=== PATIENT | female | born 1985 | race Caucasian/White ===

== ENCOUNTER 2020-01-31 09:29 | Inpatient (IN) | payer OTHER, SELFPAY ==
[2020-01-31] VITALS (7 sets, daily range): BP systolic 98–126; BP diastolic 63–75; PULSE 91–99; RESP 9–15; TEMP 36; O2SAT 97–100
--- NOTE | 2020-01-31 | PATH_ITS ---
[facility] Accession Number: [id number] . 01 Material submitted: . placenta - PLACENTA FOR CULTURE . 02 Diagnosis: Delong Placenta for Culture: . Placenta parenchyma: Delong placenta. Weight: 468 grams. Chorionic villous maturation is consistent with mature placenta. Mild to oderate inter- and intra-villous fibrin is present. Possible, very mild villitis present. Please see comment. . Membranes: Marginally inserted. Meconium staining is present. No chorioamnionitis identified. Patchy fibrin deposition on maternal surface (less than 5% of placental disc surface). . Umbilical cord: Length: 10.3 cm. Eccentrically inserted 2.5 cm from the peripheral disc margin. Three vessels present. No funisitis identified. MRV 02/03/2020 1450 Local . 02 Comment: The specimen is submitted in formalin; no tissue available for culture studies. . 02 Electronically signed: . Sandi Ortega MD, Pathologist NPI- [id number] . 01 Gross description: . Received in formalin, labeled with the patient's name, MRN and placenta, is a 468 gram, 16.2 x 13.4 x 3.5 cm delong placenta. The membranes are claudio-white and translucent, inserting marginally. The umbilical cord measures 10.3 cm in length by 0.7 cm in diameter and has unremarkable coiling. No true or false knots are identified. The cord inserts eccentrically 2.5 cm from the nearest peripheral edge. There are three vessels. The surface is blue-rodríguez with prominent vasculature. The maternal surface has intact cotyledons. The placenta is serially sectioned to reveal a red-brown spongy cut surface. There are claudio-white irregular areas on the maternal surface ranging in size from 0.2 cm to 0.4 cm, involving less than 5% of the placental disc. Working Manager sections are submitted as follows: . A1: operations support representative sections of umbilical cord and membrane roll. A2: operations support representative central section of placenta. A3: peripheral section of placenta. A4: operations support representative sections of irregular areas on maternal surface. (SD/[id number]) /MRV 02/02/2020 1450 Local . 02 Pathologist provided ICD-10: O43.90 . 02 CPT . 854470 Performed at: 01 [facility] [address] [id number] MD Castillo Gee MD Phone: [phone] Performed at: 02 [facility] [address] [place], [place] [id number] MD Elsie Valles MD Phone: [phone]
--- NOTE | 2020-01-31 09:46 | P.HPOB_ITS ---
OB HPI Date/Time Date of admission: 01/31/20 Date Patient Seen: 01/31/20 Time Patient Seen: 09:30 History of Present Condition Chief complaint: OBS : 1 Para: 0 Estimated Date of Delivery: 03/05/20 Estimated Gestational Age (weeks): 35.1 Narrative: Jenny Daniels is a 34 year old female @ [id number] based on 11wk US who presents w/ PPROM. ROM for clear fluid @ 0500 this morning. Menstrual like cramping started at the same time and has progressed in frequency. +FM. History of Present care: good care Dating criteria: based on 1st trimester US only Ultrasounds: normal mid trimester US Obstetrical complications: none Medical complications: none Preadmission Labs Blood type: A (+) positive -: Antibody screen: negative, Cystic fibrosis screen: unknown, GBS status: unknown, HBsAG: negative, HIV: negative and RPR/VDLR: negative -: Chlamydia screen: not detected and Gonorrhea screen: not detected -: Rubella: immune and Varicella: unknown HCT: 33.9 HCAB: negative PAP: Normal Cell-free DNA: negative/male 3 hr GTT: 2 hr (66/65/79) Evaluation Evaluation Baseline heart rate: 120 Variability: Moderate (11-25) monitor accelerations: Absent monitor decelerations: Absent Contraction Frequency (minutes): 4 Uterine Contraction Intensity: Mild Category of Tracing: Reactive Non-invasive Membranes Rupture Test: positive Comments: CE deferred at his time [facility] Medical History (Updated 01/31/20 @ 10:40 by Arcelia Bronson CNM) Asthma (Acute) Social History (Updated 01/31/20 @ 10:40 by Arcelia Bronson CNM) marital status: number of children: 0 household members: spouse lives independently: Yes caregiver/support person: No housing: house education level: college occupational status: employed alcohol intake: never Meds Home Medications and Allergies Home Medications Medication Instructions Recorded Confirmed Type albuterol sulfate 01/31/20 History multivit 23-gzhf-heoenv 1-dha cap PO 01/31/20 History [PNV-DHA] Allergies Allergy/AdvReac Type Severity Reaction Status Date / Time No Known Drug Allergies Allergy Verified 01/31/20 10:44 Review of Systems Review of Systems ROS: Yes All systems reviewed with the patient and are negative except as otherwise documented Exam Vital Signs (past 8 hours): BP 126/75, HR 87bpm, RR 16/min, T97.9F Termporal Resp Effort & Inspection: normal respiratory effort Auscultation: clear to auscultation bilaterally Cardio Rate: regular rate Rhythm: regular rhythm Heart Sounds: S1 normal and S2 normal OB/External & Speculum: deferred Uterus Location (Fundal Height): 34 Presentation: full/complete breech Estimated Weight (lbs): 4 Amniotic Fluid: clear Objective Labs Result Diagrams: 01/31/20 10:10 Assessment and Plan Assessment and Plan Assessment and Plan narrative: A: AMA, Primipara, PPROM @ 35.1wks, Breech lie, Cat I FHR P: Admit, pre-op orders. Consulted (OBGyn) and (FP/Peds) for breech PPROM. Counseled patient on PPROM, outlook with possible need for transfer of care after for NICU if needed. Counseled her on transfer of care for recommended primary for breech presentation. Patient aware and in agreement. Betamethasone and COVID testing stat. Time Spent with Patient Total time spent with greater than 50% in coordination of care (as documented) at patient's floor/unit and/or counseling patient:: 25 - 35 minutes
[2020-01-31 10:01] LABS: Appearance Urine UA CLEAR; Bilirubin Urine UA NEGATIVE (NEGATIVE); Color Urine UA YELLOW; Glucose Urine UA NEGATIVE (Negative); Ketones Urine UA NEGATIVE (NEGATIVE); Leukocyte Esterase Urine UA NEGATIVE (NEGATIVE); Nitrite Urine UA NEGATIVE (Negative); Occult Blood Urine UA 3+ (Negative); Protein Urine UA NEGATIVE (Negative); Urobilinogen Urine UA 0.2 E.U./dL (0.2)
[2020-01-31 10:12] LABS: Bacteria Urine Few (2-10); Culture Indicated Urine Cult Not Indicated; RBC Urine 0-1/HPF (0-5/HPF); Squamous Epithelial Cell Urine 0-1 /HPF (0-5/HPF); WBC Urine 0-1/HPF (0-5/HPF)
[2020-01-31 10:38] LABS: Add Manual Diff / Slide Review NO; Basophils Absolute Auto 100 /uL (0-100); Basophils Percent Auto 0.4 % (0-2); Eosinophils Absolute Auto 100 /uL (0-450); Eosinophils Percent Auto 0.6 % (2-4); Hematocrit 32.9 % (36-46); Hemoglobin 10.8 g/dL (12.0-16.0); Lymphocytes Absolute Auto 1900 /uL (1100-4500); Lymphocytes Percent Auto 14.3 % (25-40); Mean Corpuscular Hemoglobin 29.5 PG (26-34); Mean Corpuscular Volume 89.6 fL (80-100); Monocytes Absolute Auto 800 /uL (0-900); Monocytes Percent Auto 5.9 % (3-14); Neutrophils Absolute Auto 10300 /uL (1500-7000); Neutrophils Percent Auto 78.8 % (50-75); Platelet Count 268 X10^3/uL (150-400); Red Blood Cell Count 3.67 X10^6/uL (4.0-5.2); Red Cell Distribution Width 13.3 % (11.6-14.8); White Blood Cell Count 13.1 X10^3/uL (4.5-11.0)
[2020-01-31] MEDS: BETAMETHASONE 30 MG/5 ML MDV 12 MG IM (11:15)
[2020-01-31] MEDS: fentaNYL 100 MCG/2 ML INJ IV ×2 (11:19→11:49)
[2020-01-31] MEDS: LACTATED RINGERS 1,000 ML 100 ML IV ×4 (11:23→21:30)
[2020-01-31 11:49] LABS: Strep Grp B PCR NEG for Grp B Strep
[2020-01-31] MEDS: AZITHROMYCIN 500 MG in DEXTROSE 5% IN WATER 250 ML IV (11:57)
[2020-01-31 12:06] LABS: COVID19 -Nasal RAPID Negative (Negative)
--- NOTE | 2020-01-31 12:06 | SUR.OPER ---
Supine on Padded OR bed, head on pillow, safety belt at thigh, arms secured on padded arm boards at <90 degrees abduction. Bump under right buttock. Legs uncrossed with pillow under knees, gel pad to heels, tape over blanket to lower legs.
--- NOTE | 2020-01-31 12:13 | PM.PREOP ---
Pre-operative Note COVID-19 COVID-19 status: Negative Result date/Date tested (Pos, Neg/Pending): 01/31/20 Interval Note History & Physical reviewed/Exam performed by Physician: Yes Changes to H&P: No H&P completed within 30 days and has changed as indicated here:: This patient is admitted by Kristy he sings for gross rupture of membranes for clear fluid at 35 and 1. Patient has reassuring testing, but is darius Q 2-3 and uncomfortable, in 4-5 cm. Fetus is confirmed to be in breech presentation on ultrasound. Patient was consented for primary section for premature rupture of membranes with breech presentation. We discussed risk of damage to bowel bladder, risk of infection to be medicated by antibiotics administered preoperatively, and risk of bleeding which may require blood transfusion. We discussed risks to future pregnancies, but that given the breech presentation, section is thought to be the safest method of delivery. The patient vocalized understanding, and informed consent was obtained. Plan to proceed to the OR expeditiously. -500 mg of azithromycin and 2 g Ancef to be administered IV preoperatively -patient for Betadine vaginal prep
[2020-01-31] MEDS: CEFAZOLIN 2 GM/100 ML FROZ.PIGGY IV (12:15)
--- NOTE | 2020-01-31 13:08 | SUR.OPER ---
live male at 1236, APGARS 7/9
--- NOTE | 2020-01-31 13:27 | PM.OBHP.1 ---
OB HPI History of Present Condition Chief complaint: OBS Narrative: Jenny Daniels is a 34 year old female Evaluation Evaluation Laboratory results: Laboratory Tests 01/31/20 01/31/20 01/31/20 09:10 09:10 10:10 WBC 13.1 H RBC 3.67 L Hgb 10.8 L Hct 32.9 L MCV 89.6 MCH 29.5 MCHC 33.0 RDW 13.3 Plt Count 268 Neut % (Auto) 78.8 H Lymph % (Auto) 14.3 L [place] % (Auto) 5.9 Eos % (Auto) 0.6 L Baso % (Auto) 0.4 Neut # (Auto) 01831 H Lymph # (Auto) 1900 [place] # (Auto) 800 Eos # (Auto) 100 Baso # (Auto) 100 Urine Color Yellow Urine Appearance Clear Urine pH 7.0 Ur Specific [place] 1.010 Urine Protein Negative Urine Glucose (UA) Negative Urine Ketones Negative Urine Occult Blood 3+ H Urine Nitrate Negative Urine Bilirubin Negative Urine Urobilinogen 0.2 Ur Leukocyte Esterase Negative Urine RBC 0-1/hpf Urine WBC 0-1/hpf Ur Squamous Epith Cells 0-1 /hpf Urine Bacteria Few (2-10) H Ur Culture Indicated? Cult not indicated COVID-19 PCR Group B Strep (PCR) Neg for grp b strep Blood Type Antibody Screen 01/31/20 01/31/20 10:10 11:35 WBC RBC Hgb Hct MCV MCH MCHC RDW Plt Count Neut % (Auto) Lymph % (Auto) [place] % (Auto) Eos % (Auto) Baso % (Auto) Neut # (Auto) Lymph # (Auto) [place] # (Auto) Eos # (Auto) Baso # (Auto) Urine Color Urine Appearance Urine pH Ur Specific [place] Urine Protein Urine Glucose (UA) Urine Ketones Urine Occult Blood Urine Nitrate Urine Bilirubin Urine Urobilinogen Ur Leukocyte Esterase Urine RBC Urine WBC Ur Squamous Epith Cells Urine Bacteria Ur Culture Indicated? COVID-19 PCR Negative Group B Strep (PCR) Blood Type A Positive Antibody Screen Negative PFSH Medical History (Updated 01/31/20 @ 10:40 by Arcelia Bronson CNM) Asthma (Acute) Social History (Updated 01/31/20 @ 10:40 by Arcelia Bronson CNM) marital status: number of children: 0 household members: spouse lives independently: Yes caregiver/support person: No housing: house education level: college occupational status: employed Smoking Status: Never smoker alcohol intake: never Meds Home Medications and Allergies Home Medications Medication Instructions Recorded Confirmed Type albuterol sulfate 1 puff INHALATION PRN PRN 01/31/20 01/31/20 History multivit 43-slif-hyjkdk 1-dha 1 cap PO DAILY 01/31/20 01/31/20 History [PNV-DHA] Allergies Allergy/AdvReac Type Severity Reaction Status Date / Time No Known Drug Allergies Allergy Verified 01/31/20 10:44 Exam Vital Signs (past 8 hours): - 01/31/20 11:33 Blood Pressure 126/75 Objective Labs Result Diagrams: 01/31/20 10:10 Labs: Laboratory Results - last 24 hr 01/31/20 01/31/20 01/31/20 09:10 09:10 10:10 WBC 13.1 H RBC 3.67 L Hgb 10.8 L Hct 32.9 L MCV 89.6 MCH 29.5 MCHC 33.0 RDW 13.3 Plt Count 268 Neut % (Auto) 78.8 H Lymph % (Auto) 14.3 L [place] % (Auto) 5.9 Eos % (Auto) 0.6 L Baso % (Auto) 0.4 Neut # (Auto) 15694 H Lymph # (Auto) 1900 [place] # (Auto) 800 Eos # (Auto) 100 Baso # (Auto) 100 Urine Color Yellow Urine Appearance Clear Urine pH 7.0 Ur Specific [place] 1.010 Urine Protein Negative Urine Glucose (UA) Negative Urine Ketones Negative Urine Occult Blood 3+ H Urine Nitrate Negative Urine Bilirubin Negative Urine Urobilinogen 0.2 Ur Leukocyte Esterase Negative Urine RBC 0-1/hpf Urine WBC 0-1/hpf Ur Squamous Epith Cells 0-1 /hpf Urine Bacteria Few (2-10) H Ur Culture Indicated? Cult not indicated COVID-19 PCR Group B Strep (PCR) Neg for grp b strep Blood Type Antibody Screen 01/31/20 01/31/20 10:10 11:35 WBC RBC Hgb Hct MCV MCH MCHC RDW Plt Count Neut % (Auto) Lymph % (Auto) [place] % (Auto) Eos % (Auto) Baso % (Auto) Neut # (Auto) Lymph # (Auto) [place] # (Auto) Eos # (Auto) Baso # (Auto) Urine Color Urine Appearance Urine pH Ur Specific [place] Urine Protein Urine Glucose (UA) Urine Ketones Urine Occult Blood Urine Nitrate Urine Bilirubin Urine Urobilinogen Ur Leukocyte Esterase Urine RBC Urine WBC Ur Squamous Epith Cells Urine Bacteria Ur Culture Indicated? COVID-19 PCR Negative Group B Strep (PCR) Blood Type A Positive Antibody Screen Negative
--- NOTE | 2020-01-31 13:32 | SUR.PHASEI ---
Reported nausea, obtained Rx, nausea had resolved and patient opted not to receive the medication. Asked if she could sleep. Denies pain.
[2020-01-31] MEDS: METOCLOPRAMIDE 10 MG/2 ML INJ IV (15:09)
[2020-01-31] MEDS: ACETAMINOPHEN 325 MG TABLET 650 MG PO (17:32)
--- NOTE | 2020-01-31 17:42 | P.OP_ITS ---
Operative Date/Time/Diagnoses Date of procedure: 01/31/20 Time of procedure: 12:30 Pre-op diagnosis: PPROM, breech presentation Post-op diagnosis: same Procedure & Clinicians Procedure: Primary section Same procedure as scheduled: Yes Indications: Breech presentation, premature rupture of membranes Surgeon: Brandee Hughes Exhibit Technician: Ember Doherty Anesthesia Type: Spinal Operative Notes Findings: Male in the complete breech presentation, nuchal cord x1, nuchal arms x2. Normal uterus, tubes, ovaries. Friable placental membranes consistent with possible intrauterine infection. Closure Type: primary Specimen(s): other (Placenta) Applied: catheter Estimated Blood Loss (mL): 750 Procedure in detail: EBL: 750 cc Fluids: 2100 cc lactated Ringer's UOP: 100 cc clear urine Findings: Male in cephalic presentation, Apgars 7 and 9, weight 5 lb 15 oz, normal uterus, tubes, ovaries. Procedures: The patient was taken to the operating room where spinal anesthesia was placed and found to be adequate. She was prepped and draped in the normal sterile fashion in the dorsal supine position with a leftward tilt, including Betadine vaginal prep. A Pfannenstiel skin incision was made with a scalpel and carried through to the underlying layer of fascia. The fascia was incised in the midline and the incision extended laterally with Mendes scissors. The inferior aspect of this incision was grasped with Zana clamps, elevated. and the underlying rectus muscles dissected off bluntly and with curved Mendes scissors. Attention was then turned to the superior aspect of this incision which, in a similar fashion, was grasped, tented up with the Zana clamps, and the rectus muscles dissected off bluntly and with curved Mendes scissors. The rectus muscles were then in the midline, and the peritoneum identified and entered bluntly. The peritoneal incision was extended superiorly and inferiorly with good visualization of the bladder. The bladder blade was inserted and the vesico uterine peritoneum identified, grasped with pickups, and entered sharply with the Metzenbaum scissors. This incision was extended laterally, and the bladder flap created digitally. The bladder blade was then reinserted and the lower uterine segment incised in transverse fashion with the scalpel. The uterine incision was bluntly extended laterally. The bladder blade was removed, and the feet were grasped and brought through the incision. The body was brought through the incision to the level of the scapula, and the arms were rotated with the usual maneuvers. The vertex was then delivered using fundal pressure and the usual maneuvers. One loose nuchal cord was reduced, the cord was milked toward the baby, and the cord was clamped and cut. The infant was handed off to waiting pediatricians. The placenta was then removed spontaneously, and the uterus was exteriorized and cleared of all clots and debris. The uterine incision was repaired with 1-0 chromic in a running, locked fashion a 2nd layer of the same suture was used to obtain excellent hemostasis. The uterus was returned to the abdomen, and the gutters were cleared of all clots and debris. The bladder flap was report closed in a running fashion with 2 0 Vicryl, and the fascia reapproximated with 0 Vicryl in a running fashion. The subcutaneous layer was placed with 3 0 Vicryl in an interrupted fashion and the skin was closed with 4-0 biosyn in a running fashion. The patient tolerated the procedure well sponge lap and needle counts were correct x2. 2 g of Ancef and 500 mg of azithromycin were given at commencement of the case. The patient was taken to the recovery room in stable condition. Complications: none Post-operative Condition: stable Disposition: PACU Plan for aftercare: Routine postoperative care. No maternal or signs of infection.
[2020-01-31] MEDS: OXYCODONE IR 5 MG TABLET PO (19:22)
[2020-01-31] MEDS: KETOROLAC 30 MG/ML VIAL IV (21:28)
[2020-02-01] MEDS: KETOROLAC 30 MG/ML VIAL IV ×2 (02:57→08:53)
[2020-02-01] MEDS: OXYCODONE IR 5 MG TABLET PO ×4 (06:37→21:21)
--- NOTE | 2020-02-01 08:23 | PM.OBPN.1 ---
Subjective - OB Subjective Patient comments: no complaints, pain well controlled, incisional pain, tolerating diet and flatus present baby status: doing well and nursing well [place] feeding status: exclusively breast feeding Date Patient Seen: 02/01/20 Time Patient Seen: 08:24 Exam Vital Signs (past 8 hours): 100/55, HR 82 Oxygen Delivery Method Room Air Const General: cooperative, healthy appearing, comfortable and well groomed Other: resting in bed, nursing Resp Effort & Inspection: normal respiratory effort Auscultation: clear to auscultation bilaterally Cardio Rate: regular rate Rhythm: regular rhythm GI Palpation: soft and No tender Other: fundus firm, below u. Incision c/d/i Skin General: no rashes or lesions noted Objective Labs Result Diagrams: 01/31/20 10:10 Labs: Laboratory Results - last 24 hr 01/31/20 01/31/20 01/31/20 09:10 09:10 10:10 WBC 13.1 H RBC 3.67 L Hgb 10.8 L Hct 32.9 L MCV 89.6 MCH 29.5 MCHC 33.0 RDW 13.3 Plt Count 268 Neut % (Auto) 78.8 H Lymph % (Auto) 14.3 L [place] % (Auto) 5.9 Eos % (Auto) 0.6 L Baso % (Auto) 0.4 Neut # (Auto) 77318 H Lymph # (Auto) 1900 [place] # (Auto) 800 Eos # (Auto) 100 Baso # (Auto) 100 Urine Color Yellow Urine Appearance Clear Urine pH 7.0 Ur Specific [place] 1.010 Urine Protein Negative Urine Glucose (UA) Negative Urine Ketones Negative Urine Occult Blood 3+ H Urine Nitrate Negative Urine Bilirubin Negative Urine Urobilinogen 0.2 Ur Leukocyte Esterase Negative Urine RBC 0-1/hpf Urine WBC 0-1/hpf Ur Squamous Epith Cells 0-1 /hpf Urine Bacteria Few (2-10) H Ur Culture Indicated? Cult not indicated COVID-19 PCR Group B Strep (PCR) Neg for grp b strep Blood Type Antibody Screen 01/31/20 01/31/20 10:10 11:35 WBC RBC Hgb Hct MCV MCH MCHC RDW Plt Count Neut % (Auto) Lymph % (Auto) [place] % (Auto) Eos % (Auto) Baso % (Auto) Neut # (Auto) Lymph # (Auto) [place] # (Auto) Eos # (Auto) Baso # (Auto) Urine Color Urine Appearance Urine pH Ur Specific [place] Urine Protein Urine Glucose (UA) Urine Ketones Urine Occult Blood Urine Nitrate Urine Bilirubin Urine Urobilinogen Ur Leukocyte Esterase Urine RBC Urine WBC Ur Squamous Epith Cells Urine Bacteria Ur Culture Indicated? COVID-19 PCR Negative Group B Strep (PCR) Blood Type A Positive Antibody Screen Negative Assessment & Plan Plan day: 1 plan OB: routine postop care Comments: This patient is doing well on POD#1, meeting postoperative goals appropriately. A voiding trial is in progress this AM, and a CBC is ordered. Time Spent With Patient Time: Total time spent is greater than 50% in coordination of care (as documented) at patient's floor/unit and/or counseling patient: Time with patient: 15-24 minutes
[2020-02-01 08:54] LABS: Add Manual Diff / Slide Review NO; Basophils Absolute Auto 0 /uL (0-100); Basophils Percent Auto 0.1 % (0-2); Eosinophils Absolute Auto 0 /uL (0-450); Hematocrit 24.6 % (36-46); Hemoglobin 8.1 g/dL (12.0-16.0); Lymphocytes Absolute Auto 1200 /uL (1100-4500); Lymphocytes Percent Auto 5.8 % (25-40); Mean Corpuscular Hemoglobin 29.5 PG (26-34); Mean Corpuscular Volume 89.3 fL (80-100); Monocytes Absolute Auto 1100 /uL (0-900); Monocytes Percent Auto 5.2 % (3-14); Neutrophils Absolute Auto 19000 /uL (1500-7000); Neutrophils Percent Auto 88.9 % (50-75); Platelet Count 256 X10^3/uL (150-400); Red Blood Cell Count 2.76 X10^6/uL (4.0-5.2); White Blood Cell Count 21.3 X10^3/uL (4.5-11.0)
[2020-02-01] MEDS: DOCUSATE 250 MG CAPSULE PO (08:55)
[2020-02-01] MEDS: IBUPROFEN 600 MG TABLET PO ×2 (16:47→23:28)
[2020-02-02] MEDS: OXYCODONE IR 5 MG TABLET PO ×4 (02:50→15:54)
[2020-02-02] MEDS: ACETAMINOPHEN 325 MG TABLET 650 MG PO ×3 (02:50→17:54)
[2020-02-02] MEDS: IBUPROFEN 600 MG TABLET PO ×2 (07:14→15:54)
--- NOTE | 2020-02-02 10:07 | PM.OBPN.1 ---
Subjective - OB Subjective Patient comments: pain well controlled (patient reports incisional pain overnight that is much improved. ) baby status: doing well [place] feeding status: exclusively breast feeding Narrative: This patient is postop day 2. Status post primary section in the setting of premature rupture of membranes and breech presentation. Her recovery has been uncomplicated today. No signs or symptoms of infection. Date Patient Seen: 02/02/20 Time Patient Seen: 10:07 Interval history: Patient reports poor pain control overnight, improved this morning after Tylenol, Motrin, and oxycodone. Is ambulating, voiding, passing flatus. Mild to moderate lochia. No other complaints. Patient has concerns about being discharged with 35 week baby, discussed that this would await the decision of pediatricians. Exam Vital Signs (past 8 hours): Oxygen Delivery Method Room Air Const General: cooperative, healthy appearing, comfortable and well groomed Resp Effort & Inspection: normal respiratory effort Auscultation: clear to auscultation bilaterally Cardio Rate: regular rate Rhythm: regular rhythm GI Palpation: soft and No tender Other: Fundus firm below U, incision clean, dry, intact Skin General: no rashes or lesions noted Extrem General: normal to inspection Objective Labs Result Diagrams: 02/01/20 08:47 Assessment & Plan Assessment and Plan (1) delivery delivered: Status: Acute Plan day: 2 plan OB: routine postop care Comments: This patient is recovering well, meeting goals appropriately. The patient is stable for discharge per our usual practice pattern, discussed precautions with patient. Patient would like to wait and see decision on baby prior to discharge. Discussed postop care and precautions with the patient. Time Spent With Patient Time: Total time spent is greater than 50% in coordination of care (as documented) at patient's floor/unit and/or counseling patient: Time with patient: 15-24 minutes
[2020-02-02] MEDS: DOCUSATE 250 MG CAPSULE PO (10:40)
[2020-02-02] MEDS: LANOLIN OINT 7 GM 1 APPLIC TOP (13:34)
[2020-02-02] MEDS: MEASLES,MUMPS,RUBELLA VACC/PF 0.5 ML VIAL SUBCUT (20:05)
== END 2020-02-02 20:12 | disposition home or self-care (01) | DRG 786 ==
PROVIDERS: Obstetrics & Gynecology; Admitting Provider Nurse Practitioner Obstetrics & Gynecology; Referring Provider Nurse Practitioner Obstetrics & Gynecology; Visit Provider Nurse Practitioner Obstetrics & Gynecology
PROC: 10D00Z1 Extraction of Products of Conception, Low, Open Approach (ICD-10-PCS; CPT 59514; principal; 2020-01-31 12:30)
DX: O64.1XX0 Obstructed labor due to breech presentation, not applicable or unspecified (principal); O60.14X0 Preterm labor third trimester with preterm delivery third trimester, not applicable or unspecified; O42.02 Full-term premature rupture of membranes, onset of labor within 24 hours of rupture; Z3A.35 35 weeks gestation of pregnancy; Z37.0 Single live birth; Z11.59 Encounter for screening for other viral diseases; O69.81X0 Labor and delivery complicated by cord around neck, without compression, not applicable or unspecified; J45.909 Unspecified asthma, uncomplicated
CPT/HCPCS: 36415; 59050; 59514; 76815; 81001; 84112; 85025; 86850; 86900; 86901; 87081; 87635; 87653; G0379; J0690; J0702; J1885; J2274; J2765; J3010

== ENCOUNTER → 2022-07-31 10:11 | Outpatient (CLI) | payer OTHER, SELFPAY ==
--- NOTE | 2022-07-31 10:13 | DI.ECHO.S_ITS ---
[facility] +---------+ : : [address] : : : : [place] : : : : [place], : : : : [place] [id number] : : : : Phone: [phone] [id number] Echocardiogram Report + + :Name: ROSEMARY ARELLANO Study Date: 07/31/2022 Height: 66 in : :[facility] ReadingLocation: Weight: 160 lb : : Gender: Female BSA: 1.8 m2 : :: 1985 Age: 37 yrs BP: 118/70 mmHg: :Reason For Study: Abnormal X-Ray- prominent pulmonary artery, : :evaluate for pulmonary hypertension : :Ordering Physician: GEE, : :CLEOPATRA Performed By: Chrissie Martini : :Referring: CLEOPATRA FLYNN : + + Interpretation Summary The left ventricle is normal in size and wall thickness. Left ventricular systolic function is normal. The ejection fraction is estimated to be 60-65%. The right ventricle is normal in size and function. Both atria are normal in size. There is moderate tricuspid regurgitation. The right ventricular systolic pressure is estimated to be at least 25.5 mmHg based on an estimated right atrial pressure of 3 mm Hg. 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 Mild pulmonary regurgitation. Pulmonary regurgitation is not significant. No pulmonary stenosis. No obvious vegetation seen. Distal main pulmonary artery diameter about 2.51 cm without any significant dilatation. Cannot rule out right pleural effusion Procedure: A two-dimensional transthoracic echocardiogram with color flow and Doppler was performed. The study quality was technically good. There is no prior echocardiogram noted for this patient. The patient was in sinus rhythm with heart rates between 72-84 bpm during the exam. Left Ventricle: The left ventricle is normal in size and wall thickness. A false chord is noted (normal variant). The ejection fraction is estimated to be 60-65%. Left ventricular systolic function is normal. There are no focal wall motion abnormalities. Diastolic parameters suggest probable normal left ventricular diastolic function and normal filling pressures. Right Ventricle: The right ventricle is normal in size and function. Atria: The left atrial size is normal. Both atria are normal in size. Right atrial size is normal. There is no Doppler evidence for an interatrial shunt. Mitral Valve: The mitral valve leaflets appear borderline thickened, but open well. There is systolic anterior motion of the chordal apparatus. There is trace mitral regurgitation. Aortic Valve: The aortic valve is normal in structure and function. The aortic valve is trileaflet. There is no aortic valve stenosis. No aortic regurgitation is present. Tricuspid Valve: The tricuspid valve is normal. There is moderate tricuspid regurgitation. The right ventricular systolic pressure is estimated to be at least 25.5 mmHg based on an estimated right atrial pressure of 3 mm Hg. 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 Mild pulmonary regurgitation. Pulmonary regurgitation is not significant. No pulmonary stenosis. No obvious vegetation seen. Distal main pulmonary artery diameter about 2.51 cm without any significant dilatation. There is mild pulmonic regurgitation. Great Vessels: The aortic root is normal size. The ascending aorta is normal in size. The pulmonary artery is normal size. The IVC is of normal diameter and collapses greater than 50% with a sniff. This suggests a low right atrial pressure of 3 mm Hg. Pericardium/ Pleura There is no pericardial effusion. Cannot rule out right pleural effusion. MMode/2D Measurements & Calculations LVIDd: 4.7 cm AoV Openin.1 cm LVIDs: 2.9 cm LVOT diam: 2.0 cm IVSd: 0.80 cm Ao root diam: 3.3 cm LVPWd: 0.70 cm asc Aorta Diam: 3.1 cm LV bryan. diameter/BSA (cm/m^2): 2.6 Ao Arch Diam (Prox Trans): 2.9 cm LV sys. diameter/BSA (cm/m^2): 1.6 FS: 38.3 % EPSS: 0.20 cm LA dimension: 3.2 cm RA long axis: 4.0 cm LA A2 area: 16.2 cm2 RA area: 11.4 cm2 LA A4 area: 15.7 cm2 RA vol: 27.3 ml LA length (vol): 5.0 cm RA : 15.0 ml/m2 LA vol: 43.3 ml LA vol index: 23.8 ml/m2 RVD1 (basal): 3.4 cm IVC diam: 1.8 cm LVLs ap4: 5.9 cm LVLd ap2: 7.3 cm LVLs ap2: 5.6 cm TAPSE_phl: 2.4 cm Doppler Measurements & Calculations Ao V2 max: 117.0 cm/sec LVOT Max Haseeb: 112.0 cm/sec Ao V2 mean: 85.7 cm/sec LV V1 max P.0 mmHg Ao V2 VTI: 26.8 cm LV V1 VTI: 23.1 cm Ao max P.0 mmHg Ao mean P.0 mmHg RONN(I,D): 2.7 cm2 MV E max haseeb: 75.0 cm/sec RONN(V,D): 3.0 cm2 MV A max haseeb: 54.0 cm/sec RONN indexed to BSA (cm^2/m^2): 1.5 MV E/A: 1.4 sev ratio: 0.86 Med Peak E' Haseeb: 9.0 cm/sec E/E' med: 8.3 Lat Peak E' Haseeb: 13.5 cm/sec E/E' lat: 5.6 E/e' average: 6.9 MV dec time: 0.26 sec TR max haseeb: 237.0 cm/sec MV mean P.0 mmHg TR max P.5 mmHg MVA(VTI): 3.1 cm2 PA V2 max: 87.3 cm/sec MV V2 mean: 62.1 cm/sec PA V2 mean: 65.1 cm/sec MV V2 VTI: 23.3 cm PA mean P.0 mmHg SV(LVOT): 72.6 ml AV VR_phl: 0.96 RONN(VTI)/BSA_phl: 1.5 MV P1/2t-pr_phl: 76.0 msec Reading Physician:03:05 PM
== END ==
PROVIDERS: PCP Physician Assistant; Referring Provider Physician Assistant; Visit Provider Physician Assistant
DX: Q25.79 Other congenital malformations of pulmonary artery (principal); I07.1 Rheumatic tricuspid insufficiency; I37.1 Nonrheumatic pulmonary valve insufficiency
CPT/HCPCS: 93306